=== PATIENT | male | born 1965 | race African-American/Black ===

== ENCOUNTER → 2020-02-28 | Outpatient (CLI) | payer OTHER ==
--- NOTE | 2020-02-28 15:12 | RAD ---
EXAMINATION: DIGITAL DIAGNOSTIC BILATERAL, BREAST RIGHT History: Reason: LEFT BREAST PALPABLE ABNORMALITY Comparison: None. Technique: Bilateral digital diagnostic mammogram views were obtained. CAD was utilized. 3-D tomosynthesis images were acquired. Findings: Breast Tissue Density B : There are scattered areas of fibroglandular density. There are no dominant masses, suspicious microcalcifications, or architectural distortion. Glandular tissue involving the left outer subareolar region is present. At the right upper-outer breast, there is a 0.4 cm diameter mass evident. Limited right upper outer breast ultrasound exams performed. A cyst is present in the right upper-outer breast corresponding to the mammographic finding. It measures 0.37 cm x 0.35 cm x 0.26 cm tall. No flow evident within it. No suspicious right axillary findings. IMPRESSION: No mammographic evidence of malignancy. Left gynecomastia noted. Right breast simple cyst at the upper outer quadrant. BI-RADS category 1: Negative. The images were reviewed with computer aided detection. Mammography is the most sensitive method for finding small breast cancers, but it does not detect them all and is not a substitute for careful clinical examination. A negative mammogram does not negate a clinically suspicious finding and should not result in delay in biopsying a clinically suspicious abnormality. "Our facility is accredited by the [employer] Mammography Program." Electronically signed by: Tone Aguilar MD (02/28/2020 3:09 PM) [place] [id number]
== END ==
LOC: MAMMO 13:06
PROVIDERS: ATTEND Surgery
DX: N60.01 Solitary cyst of right breast (principal); N63.20 Unspecified lump in the left breast, unspecified quadrant; R92.8 Other abnormal and inconclusive findings on diagnostic imaging of breast
CPT/HCPCS: 76641; 77066